=== PATIENT | male | born 1965 | race Caucasian/White ===

== ENCOUNTER 2016-12-12 14:37 | Emergency (ER) | payer OTHER ==
--- NOTE | 2016-12-12 15:51 | ED ORDER SUMMARY ---
..... Patient: MAG MILLS OrderSheet [facility] VisitID: [id number] [address] [place] [address] 51y, M Registration Date/Time: 12/12/2016 ORDER SHEET Weight: 74.8 kg (stated) Allergies: NKDA GENERAL ORDERS: POC Glucose (15:15 12/12/2016 LNations ER Tech1 per protocol) (15:15 LNations ER Tech1) MEDICATION ORDERS: IV FLUIDS: ORDER SHEET NOTES: [Electronically signed by Jen Daly R.N. (16:11 12/12/2016)] [Electronically signed by Lala Ferguson (16:30 12/12/2016)] [Electronically locked/signed by Jen Daly R.N. (16:11 12/12/2016)]
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
--- NOTE | 2016-12-12 15:51 | ED ORDER SUMMARY ---
..... Patient: MAG MILLS OrderSheet [facility] VisitID: [id number] [address] [place] [place] [address] 51y, M Registration Date/Time: 12/12/2016 ORDER SHEET Weight: 74.8 kg (stated) Allergies: NKDA GENERAL ORDERS: POC Glucose (15:15 12/12/2016 LNations ER Tech1 per protocol) (15:15 LNations ER Tech1) MEDICATION ORDERS: IV FLUIDS: ORDER SHEET NOTES: [Electronically signed by Jen Daly R.N. (16:11 12/12/2016)] [Electronically signed by Lala Ferguson (16:30 12/12/2016)] [Electronically locked/signed by Jen Daly R.N. (16:11 12/12/2016)]
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
--- NOTE | 2016-12-12 16:30 | ED MAR SUMMARY ---
..... Medication Administration Record [facility] [address] [place], [place] [id number] Patient: MAG MILLS Visit ID: [id number] 51y, M Weight: 74.8 kg Height/Length: 72 in BMI: 22.4 ALLERGIES: NKDA
--- NOTE | 2016-12-12 16:30 | ED MED RECONCILIATION SUMMARY ---
Patient: MAG MILLS Medication Reconciliation Report [facility] VisitID: [id number] [address] [place] [address] 51y, M Registration Date/Time: 12/12/2016 Weight: 74.8 kg Height/Length: 72 in. BMI: 22.4 ALLERGIES: NKDA The patient's Home Medications are listed below: THE FOLLOWING MEDICATIONS NEED TO BE RECONCILED: Albuterol Inhalation Atrovent HFA Inhalation Gabapentin Oral 300 mg, 2x a day Lisinopril Oral 10 mg, daily Novalog 70/30, 10-20 units bid The source(s) of the original Home Medication information: patient The following Medications were given to the patient in the Emergency Department: None. The following Medications were prescribed to the patient: Cephalexin 500 mg: take 1 capsule orally every 8 hours for 10 days. No refill. -- Lala Ferguson A.R.N.P.
--- NOTE | 2016-12-12 16:30 | ED MAR SUMMARY ---
..... Medication Administration Record [facility] [address] [place] [place], [place] [id number] Patient: MAG MILLS Visit ID: [id number] 51y, M Weight: 74.8 kg Height/Length: 72 in BMI: 22.4 ALLERGIES: NKDA
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
--- NOTE | 2016-12-12 16:30 | ED MED RECONCILIATION SUMMARY ---
Patient: MAG MILLS Medication Reconciliation Report Merged With [facility] VisitID: [id number] [address] [place] [address] 51y, M Registration Date/Time: 12/12/2016 Weight: 74.8 kg Height/Length: 72 in. BMI: 22.4 ALLERGIES: NKDA The patient's Home Medications are listed below: THE FOLLOWING MEDICATIONS NEED TO BE RECONCILED: Albuterol Inhalation Atrovent HFA Inhalation Gabapentin Oral 300 mg, 2x a day Lisinopril Oral 10 mg, daily Novalog 70/30, 10-20 units bid The source(s) of the original Home Medication information: patient The following Medications were given to the patient in the Emergency Department: None. The following Medications were prescribed to the patient: Cephalexin 500 mg: take 1 capsule orally every 8 hours for 10 days. No refill. -- Lala Ferguson A.R.N.P.
== END 2016-12-12 16:00 | disposition home or self-care (01) ==
LOC: ED SRH 14:37
DX: T25.231A Burn of second degree of right toe(s) (nail), initial encounter (principal); T31.0 Burns involving less than 10% of body surface; X16.XXXA Contact with hot heating appliances, radiators and pipes, initial encounter; Y92.009 Unspecified place in unspecified non-institutional (private) residence as the place of occurrence of the external cause; E11.40 Type 2 diabetes mellitus with diabetic neuropathy, unspecified; Z79.4 Long term (current) use of insulin; F17.200 Nicotine dependence, unspecified, uncomplicated
CPT/HCPCS: 90098